=== PATIENT | male | born 1995 | race Caucasian/White ===

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

== ENCOUNTER 2017-02-19 16:55 | Emergency (ER) | payer OTHER ==
[~2017-02-19] VITALS: Ht 170.2 cm; Wt 104.2 kg
[~2017-02-19 16:55] MED LIST changes: +DEBROX15 ML BOTH EARS
[2017-02-19] MEDS ORDERED: MUCINEX600 MG PO (18:32)
[2017-02-19 18:39] VITALS: BP 137/84
== END 2017-02-19 19:03 | disposition home or self-care (01) ==
LOC: EME 16:55
DX: J02.9 Acute pharyngitis, unspecified (principal); Z88.8 Allergy status to other drugs, medicaments and biological substances
CPT/HCPCS: 87651 90; 99281; 99284

== ENCOUNTER 2017-02-23 10:43 | Emergency (ER) | payer OTHER ==
[~2017-02-23] VITALS: Ht 167.6 cm; Wt 104.0 kg
[~2017-02-23 10:43] MED LIST changes: +MUCINEX600 MG PO
[2017-02-23 11:20] LABS: HEMATOCRIT 45.3 % (38.0-50.0); HEMOGLOBIN 15.6 G/DL (12.5-16.6); MCH 30.5 PG (29.0-34.0); MCHC 34.4 G/DL (30.0-36.0); MCV 88.5 FL (86-99); PLATELET COUNT 357 K/uL (156-360); RBC DIS.WIDTH-CV 11.8 % (11.8-14.6); RBC DIS.WIDTH-SD 37.9 % (39-53); RED BLOOD COUNT 5.12 M/uL (4.00-5.50); WHITE BLOOD COUNT 7.7 K/uL (4.1-10.2)
[2017-02-23 11:31] LABS: CHLORIDE 108 mEq/L (99-109); POTASSIUM 4.2 mEq/L (3.7-5.4); SODIUM 140 mEq/L (136-147)
[2017-02-23 11:33] LABS: GLUCOSE 99 mg/dL (70-99)
[2017-02-23 11:37] LABS: CREATININE 0.9 mg/dL (0.6-1.3); GFR ESTIMATE (CALCULATED) > 59 mL/min/ (58.99-99999)
[2017-02-23 11:38] LABS: UREA NITROGEN (BUN) 9 mg/dL (9-23)
[2017-02-23] MEDS ORDERED: TESSALON200 MG PO (12:40)
[2017-02-23 12:56] VITALS: BP 118/80
== END 2017-02-23 12:59 | disposition home or self-care (01) ==
LOC: EME 10:43
DX: J06.9 Acute upper respiratory infection, unspecified (principal); J45.909 Unspecified asthma, uncomplicated; F32.9 Major depressive disorder, single episode, unspecified; G43.909 Migraine, unspecified, not intractable, without status migrainosus; E03.9 Hypothyroidism, unspecified; F31.9 Bipolar disorder, unspecified; Z88.8 Allergy status to other drugs, medicaments and biological substances; Z91.040 Latex allergy status
CPT/HCPCS: 71020; 80048; 85027; 99281; 99283

== ENCOUNTER 2017-04-12 15:39 | Emergency (ER) | payer OTHER ==
[~2017-04-12] VITALS: Ht 167.6 cm; Wt 104.7 kg
[~2017-04-12 15:39] MED LIST changes: +TESSALON200 MG PO
[2017-04-12 16:50] LABS: HEMATOCRIT 48.2 % (38.0-50.0); HEMOGLOBIN 17.1 G/DL (12.5-16.6); MCH 30.9 PG (29.0-34.0); MCHC 35.5 G/DL (30.0-36.0); PLATELET COUNT 309 K/uL (156-360); RBC DIS.WIDTH-CV 11.9 % (11.8-14.6); RBC DIS.WIDTH-SD 37.8 % (39-53); RED BLOOD COUNT 5.54 M/uL (4.00-5.50); WHITE BLOOD COUNT 6.9 K/uL (4.1-10.2)
[2017-04-12 16:58] LABS: ALBUMIN 4.7 g/dL (3.2-4.8); CHLORIDE 106 mEq/L (99-109); POTASSIUM 4.1 mEq/L (3.7-5.4); SODIUM 137 mEq/L (136-147)
[2017-04-12 17:00] LABS: GLUCOSE 130 mg/dL (70-99)
[2017-04-12 17:01] LABS: TOTAL PROTEIN 7.6 g/dL (6.4-8.3)
[2017-04-12 17:02] LABS: TOTAL BILIRUBIN 0.5 mg/dL (0.0-1.0)
[2017-04-12 17:04] LABS: ALKALINE PHOSPHATASE 138 IU/L (3-129); CREATININE 1.1 mg/dL (0.6-1.3); GFR ESTIMATE (CALCULATED) > 59 mL/min/ (58.99-99999)
[2017-04-12 17:05] LABS: UREA NITROGEN (BUN) 11 mg/dL (9-23)
[2017-04-12 17:06] LABS: AST (GOT) 21 IU/L (2-34)
[2017-04-12 17:07] LABS: ALT (GPT) 33 IU/L (3-49)
[2017-04-12 18:55] LABS: APPEARANCE SL.HAZY ((CLEAR)); BILIRUBIN NEGATIVE; BLOOD NEGATIVE; COLOR YELLOW ((YELLOW)); GLUCOSE (STRIP) NEGATIVE; KETONES NEGATIVE; LEUKOCYTES NEGATIVE; NITRITE NEGATIVE; PROTEIN (STRIP) NEGATIVE; SPECIFIC GRAVITY 1.021 (1.000-1.030); UROBILINOGEN 0.2 MG/DL (0.2-1.0)
[2017-04-12 19:08] LABS: BACTERIA RARE /HPF; EPITHELIAL CELLS RARE /HPF; MUCUS TRACE /LPF; RED BLOOD CELLS 0-5 /HPF (0-5); UCUL ADDED? NO; WHITE BLOOD CELLS 0-5 /HPF (0-5)
[2017-04-12 20:32] VITALS: BP 134/91
== END 2017-04-12 20:34 | disposition home or self-care (01) ==
LOC: EME 15:39
PROVIDERS: Nurse Practitioner Family
DX: R10.9 Unspecified abdominal pain (principal); Z98.890 Other specified postprocedural states; R50.9 Fever, unspecified; R51 Headache; R11.0 Nausea
CPT/HCPCS: 71046; 74176; 80053; 81003; 85027; 87502; 99281; 99285; J1885; J7030

== ENCOUNTER 2017-05-18 18:31 | Emergency (ER) | payer OTHER ==
[~2017-05-18] VITALS: Ht 167.6 cm; Wt 99.4 kg
[2017-05-18 19:19] LABS: APPEARANCE SL.HAZY ((CLEAR)); BILIRUBIN SMALL; BLOOD NEGATIVE; COLOR AMBER ((YELLOW)); GLUCOSE (STRIP) NEGATIVE; KETONES 20; LEUKOCYTES NEGATIVE; NITRITE NEGATIVE; PROTEIN (STRIP) 100; SPECIFIC GRAVITY 1.035 (1.000-1.030)
[2017-05-18 19:38] LABS: BACTERIA 2+ /HPF; EPITHELIAL CELLS RARE /HPF; MUCUS 4+ /LPF; RED BLOOD CELLS NONE SEEN /HPF (0-5); UCUL ADDED? YES; WHITE BLOOD CELLS 0-5 /HPF (0-5)
[2017-05-18 20:03] LABS: HEMOGLOBIN 15.9 G/DL (12.5-16.6); MCH 30.9 PG (29.0-34.0); MCHC 34.6 G/DL (30.0-36.0); MCV 89.3 FL (86-99); PLATELET COUNT 270 K/uL (156-360); RBC DIS.WIDTH-CV 12.4 % (11.8-14.6); RBC DIS.WIDTH-SD 40.5 % (39-53); RED BLOOD COUNT 5.15 M/uL (4.00-5.50)
[2017-05-18 20:16] LABS: ALBUMIN 4.8 g/dL (3.2-4.8); CHLORIDE 106 mEq/L (99-109); POTASSIUM 3.8 mEq/L (3.7-5.4); SODIUM 142 mEq/L (136-147)
[2017-05-18 20:19] LABS: GLUCOSE 80 mg/dL (70-99); TOTAL PROTEIN 7.7 g/dL (6.4-8.3)
[2017-05-18 20:22] LABS: ALKALINE PHOSPHATASE 137 IU/L (3-129); GFR ESTIMATE (CALCULATED) > 59 mL/min/ (58.99-99999)
[2017-05-18 20:23] LABS: UREA NITROGEN (BUN) 12 mg/dL (9-23)
[2017-05-18 20:24] LABS: AST (GOT) 31 IU/L (2-34)
[2017-05-18 20:25] LABS: ALT (GPT) 57 IU/L (3-49)
[2017-05-18 20:26] LABS: LIPASE 15 U/L (1.0-51.0)
[2017-05-18] MEDS ORDERED: CARAFATE1 GM PO (23:49)
[2017-05-19] MEDS ORDERED: ZOFRAN ODT4 MG PO (00:42)
[2017-05-19 00:55] VITALS: BP 137/95
== END 2017-05-19 01:13 | disposition home or self-care (01) ==
LOC: EME 18:31
DX: R11.2 Nausea with vomiting, unspecified (principal); R19.7 Diarrhea, unspecified; R10.9 Unspecified abdominal pain; M79.1 Myalgia
CPT/HCPCS: 71046; 80053; 81003; 83690; 85027; 87086; 99281; 99284; J2405